=== PATIENT | female | born 1945 | race Caucasian/White ===

== ENCOUNTER 2016-09-22 16:01 | Emergency (ER) | payer BC ==
[~2016-09-22] VITALS: Ht 170.2 cm; Wt 74.8 kg
[~2016-09-22 16:01] MED LIST: AMLO2.5T PO; MULT-188 PO; OMEG1400 PO
[2016-09-22 16:03] VITALS: BP 144/82; TEMP 36.5; Ht 170.2 cm; Wt 74.8 kg
[2016-09-22] MEDS ORDERED: XYLOCAINE 1%/SOD BICARB 20 ML VIAL INFIL ONE (16:30)
[2016-09-22] MEDS ORDERED: TRAZ50TA35 PO (16:39)
[2016-09-22] MEDS ORDERED: NRV/10 PO (16:39)
--- NOTE | 2016-09-22 17:09 | DIAGNOSTIC IMAGING REPORT ---
RIGHT THIRD FINGER 3 VIEWS CLINICAL HISTORY: Third finger injury. FINDINGS: 3 views of the right third finger are obtained. No prior studies are available for comparison at the time of dictation. The skeletal structures are osteopenic. There is a comminuted fracture through the distal shaft and tuft of the third distal phalanx with numerous distracted fragments and overlying soft tissue edema. There is also likely fracture through the enthesophyte at the base of the third distal phalanx. No additional fracture is seen. Erosive osteoarthritic changes present in the proximal and distal interphalangeal joints of the third and visualized fourth digits. No radiodense foreign body is identified. IMPRESSION: 1. There is a comminuted fracture involving the distal shaft and tuft of the third distal phalanx with numerous distracted fragments and overlying soft tissue edema. 2. Erosive arthritic change as above. Electronically signed by: Arnie Barragan M.D. 09/22/2016 5:08 PM Dictated Date/Time: 09/22/2016 5:06 PM
[2016-09-22] MEDS ORDERED: CEPH500C PO (17:27)
--- NOTE | 2016-09-22 17:28 | EMERGENCY ROOM VISIT NOTE ---
ED Visit Note First contact with patient: 16:15 Patient was seen by our PA/MACHINERY CLEANER. I was involved in the patient's care and did evaluate the patient myself. I was involved in the care throughout the ER stay. The patient's finger injury has been repaired and addressed. The patient will be following with orthopedics. Antibiotics are indicated.
[2016-09-22] MEDS ORDERED: CEPHALEXIN 500MG HOME PACK 1 EA BTL PO ONE (17:30)
[2016-09-22 17:52] VITALS: PULSE 82; O2SAT 100
--- NOTE | 2016-09-22 18:28 | EMERGENCY ROOM VISIT NOTE ---
History First contact with patient: 16:15 Chief Complaint: LACERATION/CUT (NON-SUTURE) Stated Complaint: LAC ON FINGER Nursing Triage Summary: Right middle finger with open wound, swelling. History of Present Illness The patient is a 71 year old female who presents to the Emergency Room with complaints of an injury to her right third finger. The patient reports that she was blowing his no from her neighbors driveway when a clogged. She attempted to unclog the chute and the fan moved and injured her finger. She reports that the fingernail is displaced. She rates her fingertip discomfort a 6 out of 10. Tetanus immunization is up-to-date. The patient is right-hand- dominant. She does report a history of significant arthritis of the same finger. Review of Systems 10 system review was performed and was negative except for pertinent positives and negatives as indicated in history of present illness Past Medical/Surgical History Medical Problems: (1) Chest pain (2) HTN (hypertension) (3) Osteoporosis (4) Vomiting and diarrhea Family History FH: heart disease Social History Smoking Status: Never Smoker Alcohol Use: none Drug Use: none Marital Status: Housing Status: lives with family Occupation Status: retired Current/Historical Medications Scheduled Amlodipine Besylate (Amlodipine Besylate), 10 MG PO DAILY Calcium W/ Vitamins D & K (Viactiv), 1 CHW PO DAILY Cephalexin Monohydrate (Keflex), 500 MG PO TID Multiple Vitamins W/ Minerals (Centrum Silver), 1 TABLET PO DAILY Multiple Vitamins W/ Minerals (Ocuvite), 1 TAB PO QAM [place]-3 Fatty Acids ([place]-3), 1 CAP PO QAM Trazodone Hcl (Trazodone), 50 MG PO HS Allergies Coded Allergies: Acetaminophen (Unverified Adverse Reaction, Unknown, "STOUT CAVE IN", ) Oxycodone (Unverified Adverse Reaction, Unknown, "STOUT CAVE IN", 08/21/16 ) Physical Exam Vital Signs Date Time Temp Pulse Resp B/P Pulse Ox O2 Delivery O2 Flow Rate FiO2 09/22/16 17:52 82 18 100 09/22/16 16:03 36.5 84 20 144/82 100 Room Air Physical Exam CONSTITUTIONAL: Healthy and well nourished. Alert and oriented X 3 with positive affect. Patient does not appear in any acute distress. HEENT: Normocephalic, atraumatic. Pupils equal, round and reactive. NECK: Full active range of motion without discomfort. MUSCULOSKELETAL: Examination of the right third finger shows a displacement of the ulnar base of the nail plate. There also appears to be a laceration under the ulnar edge of the nail. Mild active bleeding is noted. 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 No other open wounds about the joints. Collateral ligaments are intact. Capillary refill is brisk. INTEGUMENTARY: No rash or other significant dermatologic conditions noted. NEUROLOGIC: Right third fingertip is sensory intact. Medical Decision & Procedures ER Provider Diagnostic Interpretation: My interpretation of right third finger x-rays shows a comminuted fracture of the distal phalanx with dorsal displacement of the distal fracture segments. Radiologist report is as follows: [~ rep ct add3]] RIGHT THIRD FINGER 3 VIEWS CLINICAL HISTORY: Third finger injury. FINDINGS: 3 views of the right third finger are obtained. No prior studies are available for comparison at the time of dictation. The skeletal structures are osteopenic. There is a comminuted fracture through the distal shaft and tuft of the third distal phalanx with numerous distracted fragments and overlying soft tissue edema. There is also likely fracture through the enthesophyte at the base of the third distal phalanx. No additional fracture is seen. Erosive osteoarthritic changes present in the proximal and distal interphalangeal joints of the third and visualized fourth digits. No radiodense foreign body is identified. IMPRESSION: 1. There is a comminuted fracture involving the distal shaft and tuft of the third distal phalanx with numerous distracted fragments and overlying soft tissue edema. 2. Erosive arthritic change as above. Medications Administered Medications (Trade) Dose Ordered Sig/Nerissa Route Start Time Stop Time Status Last Admin Dose Admin Cephalexin Monohydrate (Keflex 500MG Home Pack) 1 homepack NOW ONCE PO 09/22/16 17:30 09/22/16 17:31 DC 09/22/16 17:30 1 HOMEPACK Procedure Wound evaluation was performed under digital block anesthesia after receiving verbal consent from the patient. Using buffered 1% lidocaine without epinephrine, good digital block anesthesia was administered. Further examination shows soft tissue trauma from the nail subluxation; otherwise no other significant surrounding lacerations are noted. The nail was mostly well adherent to the underlying nailbed. The wound was thoroughly irrigated, then a single 4-0 nylon simple interrupted suture was placed at the proximal ulnar corner of the nail to secure it in place. A bacitracin dressing was applied. ED Course Patient history and physical exam were performed. Nurse's notes were reviewed. X-rays of the right third finger shows a comminuted fracture of the distal phalanx and tuft. Wound evaluation and nail reduction and securement were performed under digital block anesthesia. The patient will be treated with Keflex antibiotics. She was encouraged to keep the wound clean and covered with an antibiotic ointment and dressing. Ibuprofen as needed for pain. The patient reports that she will follow up with Dr. Crump for further management. The patient was happy with plan of care, and denied any pain at the time of discharge. The patient was also seen and examined by Dr. Quinonez, ED attending physician, who agrees with workup and plan of care. Medical Decision Impression Primary Impression: Open fracture, right third finger Departure Information Prescriptions Cephalexin Monohydrate (Keflex) 500 Mg Cap 500 MG PO TID for 7 Days, #21 CAP Prov: Parveen Austin PA 09/22/16 Referrals Dre Nicholson M.D. (PCP) Patient Instructions My [facility]
[2016-09-22] MEDS ORDERED: CALC8.5C PO (21:36)
[2016-09-22] MEDS ORDERED: MULTCHW PO (21:36)
== END 2016-09-22 17:58 | disposition home or self-care (01) ==
LOC: C.EDB 16:03 → C.EDD 17:58
DX: S62.632A Displaced fracture of distal phalanx of right middle finger, initial encounter for closed fracture (principal); S69.91XA Unspecified injury of right wrist, hand and finger(s), initial encounter; W45.8XXA Other foreign body or object entering through skin, initial encounter; I10 Essential (primary) hypertension; M81.0 Age-related osteoporosis without current pathological fracture; Z79.899 Other long term (current) drug therapy; Z88.5 Allergy status to narcotic agent; Z88.6 Allergy status to analgesic agent; Z82.49 Family history of ischemic heart disease and other diseases of the circulatory system

== ENCOUNTER → 2017-01-27 | Outpatient (CLI) | payer BC ==
[~2017-01-27] MED LIST changes: -AMLO2.5T PO; +CALC8.5C PO; +MULTCHW PO; +NRV/10 PO; +TRAZ50TA35 PO
--- NOTE | 2017-01-27 13:13 | MAMMOGRAPHY REPORT ---
BILATERAL DIGITAL SCREENING MAMMOGRAM WITH CAD: 01/27/2017 CLINICAL HISTORY: Routine screening. Patient has no complaints. TECHNIQUE: Current study was also evaluated with a Computer Aided Detection (CAD) system. Bilateral CC and MLO views were obtained. COMPARISON: Comparison is made to exams dated: 01/14/2016 mammogram, 01/08/2015 mammogram, 01/02/2014 m ammogram, 12/27/2012 mammogram, 12/24/2011 mammogram, and 12/19/2010 mammogram - [facility]. BREAST COMPOSITION: There are scattered areas of fibroglandular density in both breasts. FINDINGS: No suspicious masses, calcifications, or areas of architectural distortion are noted in ei ther breast. There has been no significant interval change compared to prior exams. Left superior br east asymmetry is stable compared to all available prior mammograms. IMPRESSION: ACR BI-RADS CATEGORY 2: BENIGN There is no mammographic evidence of malignancy. A 1 year screening mammogram is recommended. The pa tient will receive written notification of the results. Approximately 10% of breast cancers are not detected with mammography. A negative mammographic report should not delay biopsy if a clinically suggestive mass is present. Chantale Cochran M.D. /:01/27/2017 07:40:47 End User Support Specialist: Sofie MARTINEZR, M, [facility] letter sent: Normal 1/2 BI-RADS Code: ACR BI-RADS Category 2: Benign
== END | disposition home or self-care (01) ==
LOC: C.MAMM 07:10
PROVIDERS: ATTEND Obstetrics & Gynecology
DX: Z12.31 Encounter for screening mammogram for malignant neoplasm of breast (principal)

== ENCOUNTER → 2017-03-10 | Outpatient (CLI) | payer BC | END | disposition home or self-care (01) | LOC: C.PAPS 11:54 | PROVIDERS: ATTEND Obstetrics & Gynecology | DX: Z01.419 Encounter for gynecological examination (general) (routine) without abnormal findings (principal) ==